=== PATIENT | female | born 1980 | race Caucasian/White ===

== ENCOUNTER 2017-12-27 10:33 | Inpatient (IN) | payer BC ==
[2017-12-27] VITALS (33 sets, daily range): BP systolic 100–134; BP diastolic 54–88; PULSE 72–99; TEMP 97.1–98.3
[~2017-12-27] VITALS: Ht 162.6 cm; Wt 69.1 kg
[~2017-12-27 10:33] MED LIST: MOTRIN 600600 MG/TAB PO; PERCOCET 325 MG1 TA2 PO; PRENATAL1 TA1 PO; PRENATAL1 TA2 PO; SENOKOT S 50 MG1 TAB PO; ZANTAC 7575 MG
[2017-12-27 12:49] LABS: BASO % 0.5 % (0.0-2.0); EOS # 0.1 (0.0-0.7); EOS % 0.8 % (0-4.0); GRAN # 5.6 (1.4-6.5); GRAN % 73.6 % (42.2-75.2); HEMATOCRIT 37.9 % (37.0-47.0); HEMOGLOBIN 13.3 g/dl (12.5-16.0); LYMPH # 1.5 (1.2-3.4); LYMPH % 19.2 % (20.0-51.0); MEAN CELL VOLUME 89 fl (80.0-100.0); MEAN CORPUSCULAR HEMOGLOBIN 31 pg (27.0-31.0); MEAN CORPUSCULAR HGB CONC 35 g/dl (33.0-37.0); MEAN PLATELET VOLUME 10.4 fl (7.4-10.4); MONO # 0.4 (0.1-0.6); MONO % 5.4 % (1.7-9.3); PLATELET COUNT 213 K/mm3 (130-400); RED BLOOD COUNT 4.27 M/mm3 (4.10-5.30); REDCELL DISTRIBUTION WIDTH-CV 13.2 % (11.5-14.5)
[2017-12-27] MEDS ORDERED: PRENATAL1 TA7 PO (14:52)
[2017-12-28 02:45] VITALS: BP 115/71; PULSE 83
[2017-12-28 05:45] VITALS: BP 106/83; PULSE 82; TEMP 97.4
[2017-12-28 08:53] VITALS: BP 124/79; PULSE 84
[2017-12-28 16:18] VITALS: BP 112/78; PULSE 73
[2017-12-28 22:10] VITALS: BP 102/70; PULSE 73; TEMP 97.5
[2017-12-29 07:00] VITALS: BP 112/66; PULSE 64; TEMP 98.1
[2017-12-29] MEDS ORDERED: IBU600 MG PO (09:29)
== END 2017-12-29 11:30 | disposition home or self-care (01) | DRG 775 ==
LOC: LDRO 10:33 → LDR 10:44 → LDRO 11:24 → LDR 11:25 → OB 12-28 01:54
PROVIDERS: Obstetrics & Gynecology
PROC: 10E0XZZ Delivery of Products of Conception, External Approach (ICD-10-PCS; principal; 2017-12-27)
PROC: 0HQ9XZZ Repair Perineum Skin, External Approach (ICD-10-PCS; 2017-12-27)
DX: O70.0 First degree perineal laceration during delivery (principal); Z3A.40 40 weeks gestation of pregnancy; Z37.0 Single live birth; O34.13 Maternal care for benign tumor of corpus uteri, third trimester
CPT/HCPCS: J2590; J2795; J7120

== ENCOUNTER → 2023-09-07 | Outpatient (CLI) | payer BC ==
[~2023-09-07] MED LIST changes: +IBU600 MG PO; +PRENATAL1 TA7 PO
== END ==
LOC: MC.RAD 14:13
DX: Z12.31 Encounter for screening mammogram for malignant neoplasm of breast (principal)